=== PATIENT | female | born 1945 | race Caucasian/White ===

== ENCOUNTER 2017-06-28 06:28 | Inpatient (IN) ==
[2017-06-28] MEDS ORDERED: Lidocaine -MPF 4% 5 ML AMPUL ONE (06:53)
[2017-06-28] MEDS ORDERED: Lidocaine -MPF 2% 2 ML VIAL ONE ×2 (06:55→07:19)
[2017-06-28] MEDS ORDERED: *HR* Succinylcholine 200 MG/10 ML VIAL IVP ONE (06:55)
[2017-06-28] MEDS ORDERED: *HR* Phenylephrine 10 MG/ML VIAL ONE (06:55)
[2017-06-28] MEDS ORDERED: *HR* Propofol 200 MG/20 ML VIAL IVP ONE (06:56)
[2017-06-28] MEDS ORDERED: *HR* FentaNYL (PF) 100 MCG/2 ML VIAL ONE ×2 (06:56→08:21)
[2017-06-28] MEDS ORDERED: CeFAZolin Pre 2,000 MG/100 ML 2,000 MG/100 ML BAG IVPB ONE (06:57)
[2017-06-28] MEDS ORDERED: Albuterol 2.5 MG/3 ML NEBULIZER IH ONE (06:57)
[2017-06-28] MEDS ORDERED: D5 IVC SCH (07:00)
[2017-06-28] MEDS ORDERED: SODIUM BICARBONATE IVC SCH (07:00)
[2017-06-28] MEDS ORDERED: WATER IVC SCH (07:00)
[2017-06-28] MEDS ORDERED: Sod Bicarb 150mEq/D5W 150 MEQ/1,000 ML IV.SOLN IVC SCH (07:15)
--- NOTE | 2017-06-28 07:17 | History & Physical Report ---
Date of Encounter: 06/28/17 Time of Encounter: 07:16 24 Hour HP Update - Instructions Instructions: If the History and Physical is less than 30 days old and was completed prior to A.M. admission and or procedure and has NOT been updated on calendar day of procedure please complete this update prior to performing procedure. - Update Patient reports changes in Medical Condition: No Changes in examination, assessment, or condition: No Changes in Medication: No Preop tests/diagnostics Reviewed: Yes Surgery Remains Indicated: Yes Consent for Planned Operative Procedure(s) Verified: Yes - Pre-Operative Checklist Preoperative Checklist Indicated: Yes Prophylactic Antibiotic Ordered: Yes Home Medications Include Beta Yany: Yes Beta Yany Taken Today (Day of Surgery): Yes Beta Yany Taken Yesterday (Day Prior to Surgery): Yes Is VTE Prophylaxis Indicated?: Yes
[2017-06-28] MEDS ORDERED: Heparin 1,000 UNITS/500 mL NS 500 ML ONE ×2 (07:20→08:09)
[2017-06-28] MEDS ORDERED: Ketamine *HR* 500 MG/10 ML MDV ONE (07:22)
[2017-06-28] MEDS ORDERED: Acetaminophen IV 1,000 MG/100 ML INFUS..BTL ONE (07:30)
[2017-06-28] MEDS ORDERED: Heparin 1,000 UNITS/500 mL NS 1,000 ML ONE (07:32)
--- NOTE | 2017-06-28 07:41 | Anesthesia Evaluation PreOp ---
Date of Encounter: 06/28/17 Time of Encounter: 07:39 - Past History Planned Operation: Left iliac angio; poss fem-fem Cardiac History: HTN, Hyperlipidemia, Other (pvd) Pulmonary History: Smoker, COPD [facility] [employer] History: Other (anxiety, chronic pain) Other Medical History: Renal (stage V ckd), Diabetes Type II (insulin dependent) Alcohol Use: none Drug use: none Medications and Allergies Albuterol Neb [Proventil Neb] 2.5 mg IH TID PRN 06/28/17 [History] Albuterol Sulfate [Proair Hfa] 2 puff IH Q4H PRN 06/28/17 [History] Atorvastatin [Lipitor] 40 mg PO HS 06/28/17 [History] Docusate Sodium [Dok] 100 mg PO DAILY PRN 06/28/17 [History] Fluticasone/Salmeterol [Advair 250-50 Diskus] 1 puff IH BID 06/28/17 [History] Hydrochlorothiazide [Microzide] 12.5 mg PO DAILY 06/28/17 [History] Insulin Glargine,Hum.rec.anlog [Lantus Solostar] 20 unit SQ HS 06/28/17 [History ] Losartan Potassium [Cozaar] 50 mg PO DAILY 06/28/17 [History] Metoprolol [Lopressor] 50 mg PO DAILY 06/28/17 [History] Montelukast [Singulair] 10 mg PO DAILY 06/28/17 [History] Omeprazole [PriLOSEC] 40 mg PO DAILY 06/28/17 [History] Oxycodone HCl/Acetaminophen [Percocet 5-325 mg Tablet] 1 - 2 tab PO TID PRN [History] Promethazine HCl 12.5 mg PO BID PRN 06/28/17 [History] Ropinirole HCl [Requip] 0.5 mg PO HS 06/28/17 [History] SitaGLIPtin [Januvia] 100 mg PO DAILY 06/28/17 [History] clonazePAM [Klonopin] 0.5 mg PO BID PRN 06/28/17 [History] 3 Allergy/AdvReac Type Severity Reaction Status Date / Time No Known Allergies Allergy Verified 06/28/17 06:57 - Meds/Allergy Pre-op Review Medications Reviewed: Yes Allergies Reviewed: Yes Beta Blockers on Current Med List: Yes If Beta Blockers taken, Date/Time (Last Dose taken): 06-28-17 metoprolol 06-27-17 12:00 Anesthesia Results - Labs Laboratory Tests 06/22/17 06/22/17 06/22/17 17:58 17:58 17:58 WBC 14.7 H Hgb 13.1 Hct 40.5 Plt Count 524 H Sodium 133 L Potassium 3.6 Chloride 111 H Carbon Dioxide 11 L BUN 34 H Creatinine 1.87 H Est GFR ( Amer) 32 L Est GFR (Non-Af Amer) 27 L BUN/Creatinine Ratio 18 Glucose 94 POC Glucose Est Mean Plasma Glucose 117 Hemoglobin A1c 5.7 H Calculated Osmolality 283 06/28/17 06:55 WBC Hgb Hct Plt Count Sodium Potassium Chloride Carbon Dioxide BUN Creatinine Est GFR ( Amer) Est GFR (Non-Af Amer) BUN/Creatinine Ratio Glucose POC Glucose 132 H Est Mean Plasma Glucose Hemoglobin A1c Calculated Osmolality - Imaging EKG: report reviewed, image reviewed (SR) Anesthesia Exam Last Vital Signs Temp 98.3 F 06/28/17 07:30 Pulse 111 06/28/17 07:30 Resp 18 06/28/17 07:30 BP 130/69 06/28/17 07:30 Pulse Ox 95 06/28/17 07:30 Weight: 67 kg NPO (# of Hours): >> 8 hrs - HEENT Pupil (Motor): Pupils equal, EOMI Mallampati: III Teeth: Edentulous Denture Type: Upper: Complete, Lower: Complete Oral Opening: Greater than 3 - [facility] LOC: Oriented [facility] Motor: Normal RUE, Normal LUE, Normal RLE, Normal LLE, Normal Face - Cardiac Rhythm: Regular Murmur: None - Pulmonary Breath Sounds: bilateral Clear Respiratory Effort: Symmetrical Anesthesia Assess/Plan ASA Score: 3 Modified [place] Scale for Level of Consciousness: Cooperative, oriented, and tranquil Anesthetic Plan: General Monitoring Plan: Standard Monitors, A-Line Recovery Plan: PACU
[2017-06-28] MEDS ORDERED: diazePAM 5 MG TABLET PO ONE (07:56)
[2017-06-28] MEDS: diazePAM 5 MG TABLET PO ONE ×2 (07:57→12:02)
[2017-06-28] MEDS ORDERED: *HR* Midazolam HCl 5 MG/5 ML VIAL IVP ONE (08:00)
[2017-06-28] MEDS ORDERED: 0.9 % Sodium Chloride 500 ML IVC SCH (08:15)
[2017-06-28] MEDS ORDERED: *HR* Acetylcysteine 20% 600 MG/3 ML ORAL SYRINGE PO SCH (09:00)
[2017-06-28] MEDS ORDERED: *HR* Rocuronium Bromide 50 MG/5 ML VIAL ONE (09:04)
[2017-06-28] MEDS ORDERED: *HR* Labetalol 20 MG/4 ML SYRINGE IVP PRN (09:16)
[2017-06-28] MEDS ORDERED: *HR* HYDROmorphone (PF) 1 MG/ML SYRINGE IVP PRN (09:16)
[2017-06-28] MEDS ORDERED: Ondansetron 4 MG/2 ML VIAL IVP PRN ×2 (09:16→12:00)
--- NOTE | 2017-06-28 09:19 | Anesthesia Procedures ---
Date of Encounter: 06/28/17 Time of Encounter: 08:20 Procedures: Anesthesia - Arterial Line Consent obtained: written consent Time out performed: Yes Sedation: Versed (mg): 2 Sedation: Fentanyl (mcg): 200 Supplemental Oxygen via Nasal Cannula (L/min): 15 (circuit) Local Anesthetic: Lidocaine 1% Amount of Anesthetic used (mls): 1 Size (Gauge): 20 Length (inches): 1 3/4 Technique Used: sterile prep, guide wire technique, direct puncture technique, other (ultrasound guided) Post-Procedure: line taped into place, dry sterile dressing placed Patient tolerated procedure: well Complications: none Site: Brachial L Vitals: see anesthesia record
[2017-06-28] MEDS ORDERED: Dexamethasone 4 MG/ML VIAL ONE (10:09)
[2017-06-28] MEDS ORDERED: Ondansetron 4 MG/2 ML VIAL ONE (10:09)
[2017-06-28] MEDS ORDERED: Neostigmine Methylsulfate 3 MG/3 ML SYRINGE ONE (10:18)
[2017-06-28] MEDS ORDERED: *HR* Labetalol 20 MG/4 ML SYRINGE IVP ONE (10:22)
--- NOTE | 2017-06-28 10:57 | Operative Note ---
Date of procedure: 06/28/17 Pre-op diagnosis: pad/toe gangrene Post-op diagnosis: same Procedure: abdominal aortogram bilateral open femoral exposure bilateral(kissing) common iliac stents-7x27 mm balloon expandable stents Complications: none Anesthesia: LESLEY Surgeon: Selvin Burnham Estimated blood loss (cc): 50 Specimen: none Condition: stable Disposition: PACU Procedure in Detail: History Tana Cutler is a 71-year-old white female who has developed gangrene of the left first toe following a procedure for ingrown toenail. Patient has a history of diabetes and multiple other chronic medical concerns. A CT angiogram was obtained as well as noninvasive testing which indicated significant disease in the left lower extremity and in particular an occlusion or near occlusion of the left common iliac artery. Due to the tissue loss and patient was recommended to undergo intervention in an attempt to try to prevent major amputation. Procedure After informed consent was obtained the patient was taken to the operating room. General endotracheal anesthesia was established under arterial line pressure monitoring. The abdomen and groin and upper thighs were sterilely prepped and draped. A timeout protocol was observed. An incision was made in the left groin to perform a formal open femoral exposure. Controls obtained of the femoral artery. This was relatively small in size and was nonpulsatile. The patient did have Doppler signals through the vessel. An 18-gauge needle was then used to puncture the artery in a retrograde orientation. A wire was then inserted and then this was followed with a 6 [place] sheath and dilator. The dilator was removed and the sheath was aspirated and flushed. An angiogram was then performed by injecting contrast through the SideArm of the sheath. This demonstrated an occlusion of the proximal left common iliac artery. Then using a guidewire and a burn catheter the area of obstruction was able to be navigated and crossed. The burn catheter was placed in the infrarenal aorta and an aortogram was obtained. This demonstrated a significant stenosis that was under imaged on the CT angiogram. Therefore the patient was now going to need a bilateral procedure. Therefore a second incision was made and an open exposure was made of the right common femoral artery. Controls obtained of this vessel. Again an 18-gauge needle was used to puncture the vessel and a 6 [place] sheath was then placed over a wire. Using a Glidewire the area of the right common iliac artery stenosis was navigated. Heparin was administered intravenously and a dose of 5000 units. Using the angiogram measurements were made of the vessel for with an length. A 7 x 27 mm balloon expandable stent was selected to be placed in both common iliac arteries in a kissing balloon/kissing stent configuration. The stents were positioned under fluoroscopic control and then deployed simultaneously. After the balloons were deployed a completion aortogram was obtained. This demonstrated widely patent iliac bifurcation. There was no residual stenosis. The local lumbar vessels as well as the inferior mesenteric artery were preserved. There is no extravasation of dye. The patient tolerated this procedure well. Then with this information the wires and catheters were removed. The puncture sites were closed using 6-0 Prolene suture. The wounds were irrigated with antibiotic containing solution and hemostasis was achieved. The wounds were then closed in layers using absorbable suture. Dry sterile dressings were applied and the patient was extubated in the operating room and taken to the recovery room in stable condition. Excellent pulses and Doppler signals were identified in the femoral vessels after closure.
--- NOTE | 2017-06-28 11:50 | Anesthesia Evaluation Post Op ---
Date of Encounter: 06/28/17 Time of Encounter: 11:49 - Vital Signs Vital Signs: Vital Signs/O2 Sat/Glucose, Most Current Temp Pulse Resp BP Pulse Ox 06/28/17 11:44 97.9 F 92 16 141/74 100 06/28/17 11:34 97.5 F L 91 18 127/81 100 06/28/17 11:24 84 14 141/76 100 06/28/17 11:14 79 12 146/74 100 06/28/17 11:04 97.3 F L 74 15 142/76 99 - Lungs Lungs: Clear Ascult./Percussion - Airway Airway: Non-obstructed - Cardiovascular Regular Rate - Mental Status Mental Status: Alert & Oriented, Answers Appropriately - Pain Pain Scale: 2 - Nausea Vomiting Nausea Vomiting: Not Present - Hydration Hydration: NPO - Discharge PostOp Status: Transfer Patient to floor
[2017-06-28] MEDS ORDERED: Naloxone 0.4 MG/ML INJ IVP PRN (12:00)
[2017-06-28] MEDS ORDERED: clonazePAM 0.5 MG TABLET PO PRN (12:00)
[2017-06-28] MEDS ORDERED: Albuterol 2.5 MG/3 ML NEBULIZER IH PRN (12:00)
[2017-06-28] MEDS: ceFAZolin 2,000 MG in D5% in Water 100 ML IVPB SCH ×2 (15:55→23:52)
[2017-06-28] MEDS: *HR* OxyCODONE/APAP 5/325 TABLET PO PRN ×2 (17:29→20:25)
[2017-06-28] MEDS: *HR* Morphine 2 MG/ML SYRINGE IVP PRN ×2 (18:59→21:41)
[2017-06-28] MEDS: *HR* Acetylcysteine 20% 600 MG/3 ML ORAL SYRINGE PO SCH (20:28)
[2017-06-28] MEDS ORDERED: Insulin DETEMIR 100 UNIT/ML X5UNITS SQ SCH (21:00)
[2017-06-28] MEDS ORDERED: rOPINIRole 0.25 MG TABLET PO SCH (21:00)
[2017-06-28] MEDS: Budesonide/Formoterol 80/4.5 MDI IH SCH (21:02)
[2017-06-29] MEDS: *HR* Morphine 2 MG/ML SYRINGE IVP PRN ×4 (03:12→16:57)
[2017-06-29] MEDS: *HR* OxyCODONE/APAP 5/325 TABLET PO PRN ×2 (06:06→12:35)
[2017-06-29 07:33] LABS: Basophils # 0.1 K/mcL (0.0-0.2); Basophils % 0.2 %; Eosinophils # 0.1 K/mcL (0.0-0.6); Eosinophils % 0.3 %; Hematocrit 33.2 % (35.3-44.9); Hemoglobin 11.1 g/dL (11.5-15.4); Immature Granulocytes % 0.8 % (0-4); Lymphocytes # 3.8 K/mcL (0.6-4.6); Mean Corpuscular HGB Conc 33.4 g/dL (31.6-35.5); Mean Corpuscular Hemoglobin 30.9 pg (28.0-33.3); Mean Corpuscular Volume 92.5 fL (83.0-100.0); Mean Platelet Volume 10.3 fL (9.4-12.4); Monocytes # 1.4 K/mcL (0.0-1.3); Monocytes % 6.8 %; Neutrophils # 14.7 K/mcL (1.6-8.9); Platelet Count 333 K/mcL (140-400); Red Blood Count 3.59 M/mcL (3.82-4.97); Red Cell Distribution Width 15.9 % (11.5-14.5); Segmented Neutrophils % 72.9 %
[2017-06-29 07:37] LABS: Calcium 8.9 mg/dL (8.6-10.8)
[2017-06-29] MEDS: Budesonide/Formoterol 80/4.5 MDI IH SCH (08:05)
[2017-06-29] MEDS: *HR* Acetylcysteine 20% 600 MG/3 ML ORAL SYRINGE PO SCH (08:26)
[2017-06-29] MEDS: ceFAZolin 2,000 MG in D5% in Water 100 ML IVPB SCH (08:26)
[2017-06-29] MEDS ORDERED: hydroCHLOROthiazide 25 MG TABLET PO SCH (09:00)
[2017-06-29] MEDS ORDERED: *HR* SitaGLIPtin 25 MG TABLET PO SCH (09:00)
[2017-06-29 15:53] VITALS: BP 100/48
--- NOTE | 2017-06-29 18:00 | Discharge Summary ---
Date of Encounter: 06/29/17 Time of Encounter: 17:58 - Discharge Diagnosis (1) PAD (peripheral artery disease) Priority: Primary Status: Acute Comments: Patient has gangrene of 3 of the 5 toes on the left. Patient was documented as having high-grade left common iliac artery disease and was found to have significant right common iliac artery disease during surgery. She is status post bilateral stent placements performed yesterday. The perfusion to the left foot is dramatically improved with triphasic Doppler signals over the dorsalis pedis and posterior tibial arteries. The patient has reperfusion swelling. Patient will need further podiatric care with probable amputation of the toes. Patient was advised to follow up with scrap breaker within the next week. (2) Diabetes mellitus Priority: Secondary Status: Chronic Comments: Patient has long-standing diabetes under medical care. Qualifiers: Diabetes mellitus type: type 2 Diabetes mellitus complication status: with circulatory complication Diabetes mellitus complication detail: with peripheral angiopathy with gangrene Diabetes mellitus chcf insulin use: with termination clerk use Qualified Code(s): E11.52 - Type 2 diabetes mellitus with diabetic peripheral angiopathy with gangrene; Z79.4 - custodial (current) use of insulin (3) COPD (chronic obstructive pulmonary disease) Priority: Secondary Status: Chronic Comments: Patient has COPD under chronic medical care. Qualifiers: COPD type: unspecified COPD Qualified Code(s): J44.9 - Chronic obstructive pulmonary disease, unspecified (4) Hx of colostomy Priority: Secondary Status: Chronic Comments: Status post colectomy. (5) CKD (chronic kidney disease) stage 3, GFR 30-59 ml/min Priority: Secondary Status: Chronic Comments: Patient has long-standing chronic renal insufficiency. Patient was given Mucomyst and intravenous bicarbonate drip to ameliorate the effect of contrast per given during her surgery performed yesterday. The renal function has remained stable following contrast exposure. - Discharge Medications Home Medications: Albuterol Neb [Proventil Neb] 2.5 mg IH TID PRN 06/28/17 [History] Albuterol Sulfate [Proair Hfa] 2 puff IH Q4H PRN 06/28/17 [History] Atorvastatin [Lipitor] 40 mg PO HS 06/28/17 [History] Docusate Sodium [Dok] 100 mg PO DAILY PRN 06/28/17 [History] Fluticasone/Salmeterol [Advair 250-50 Diskus] 1 puff IH BID 06/28/17 [History] Hydrochlorothiazide [Microzide] 12.5 mg PO DAILY 06/28/17 [History] Insulin Glargine,Hum.rec.anlog [Lantus Solostar] 20 unit SQ HS 06/28/17 [History ] Losartan Potassium [Cozaar] 50 mg PO DAILY 06/28/17 [History] Metoprolol [Lopressor] 50 mg PO DAILY 06/28/17 [History] Montelukast [Singulair] 10 mg PO DAILY 06/28/17 [History] Omeprazole [PriLOSEC] 40 mg PO DAILY 06/28/17 [History] Oxycodone HCl/Acetaminophen [Percocet 5-325 mg Tablet] 1 - 2 tab PO TID PRN [History] Promethazine HCl 12.5 mg PO BID PRN 06/28/17 [History] Ropinirole HCl [Requip] 0.5 mg PO HS 06/28/17 [History] SitaGLIPtin [Januvia] 100 mg PO DAILY 06/28/17 [History] clonazePAM [Klonopin] 0.5 mg PO BID PRN 06/28/17 [History] Allergies/Adverse Reactions: 3 Allergy/AdvReac Type Severity Reaction Status Date / Time No Known Allergies Allergy Verified 06/28/17 06:57 Date of admission: 06/28/17 11:26 Primary care physician: Everette Madrigal CNP Consults: None Procedure(s) Performed: Bilateral open femoral exposure, abdominal and iliac angiogram, and bilateral common iliac artery stents. Discharging clinician: Selvin Burnham Anticipated date of discharge: 06/29/17 - Patient Status Disposition: Home, Self-Care Condition: Fair Functional capacity at discharge: uses cane/walker Overall status at discharge: patient is progressing back to baseline - Discharge Instructions Follow Up With: EVERETTE MADRIGAL [Other] - 07/06/17 10:00 am (EVERETTE HAS MOVED TO THE NEW LOCATION LISTED ABOVE) Selvin Burnham MD [Partnered Physician] - 07/20/17 1:30 pm Additional Instructions: No lifting greater than 10 pounds Remove bilateral groin dressings in 48 hours. Keep groin areas clean and dry. May use folded towel or washcloth in groin areas to keep skin edges separate and reduce moisture and perspiration. Resume usual home medications and diet. Patient is to follow-up with her scrap breaker within the next week for reevaluation of the left foot and possible toe amputations. - Diet and Activity Activity: increase activity as tolerated Diet: diabetic diet - Hospital Course Hospital course: Ms. Cutler is a 71 year old female With gangrene of toes of the left foot. She was found to have abnormal iliac system on CT angiogram. Yesterday she underwent surgery with direct open exposure of the femoral arteries and bilateral common iliac artery stent placements. Patient marked improvement of the perfusion to the left lower extremity with multiphasic Doppler signals at the left dorsalis pedis and posterior tibial arteries. The left foot is warm. Patient will need further podiatric care with toe amputations per her diet. - Time Spent with Patient Total time spent providing and/or coordinating discharge services: Exam Vital Signs, Last 4 Hours Temp Pulse Resp BP Pulse Ox 06/29/17 16:00 96.2 F L 71 16 100/48 95 06/29/17 15:38 96.2 F L 71 100/48 95 General: Present: Conversant, No Apparent Distress, Well developed, Well nourished HEENT: Present: Normocephaly Neck: Absent: JVD Cardiac: Present: Reg Rate and Rhythm, Normal S1 and S2 Lungs: Present: Normal Breath Sounds Neuro: Present: Alert and responsive, No focal deficits noted Abdomen: Present: Soft, Non-tender, Other (Patient has a functioning left lower quadrant colostomy) Vascular: Present: Normal capillary refill, Color/Temperature (Left foot is warm with signs of reperfusion.), Surgical incisions (Bilateral femoral incisions are clean and dry.), Other (Patient has gangrene involving the left first and second and fifth toes.) - VTE Documentation of Mechanical Device: Intermittent pneumatic compression device
== END 2017-06-29 18:35 | disposition home or self-care (01) | DRG 181 ==
LOC: SAMDAY 06:28 → 2NNU 11:26
PROVIDERS: ADMIT Surgery Vascular Surgery; ATTEND Surgery Vascular Surgery

== ENCOUNTER 2022-04-27 22:07 | Observation (INO) ==
[2022-04-28] MEDS ORDERED: Melatonin 3 MG TABLET PO PRN (03:02)
[2022-04-28] MEDS ORDERED: Ondansetron 4 MG/2 ML VIAL IVP PRN (03:02)
[2022-04-28] MEDS ORDERED: Acetaminophen 325 MG TABLET PO PRN (03:02)
[2022-04-28] MEDS ORDERED: Naloxone 0.4 MG/ML INJ IVP PRN (03:02)
[2022-04-28] MEDS ORDERED: D5% in Water 1,000 ML IVC PRN (03:04)
[2022-04-28] MEDS ORDERED: *HR* Dextrose 50 % in Water (Syg) 50 ML SYRINGE IVP PRN (03:04)
[2022-04-28] MEDS ORDERED: Dextrose Gel 15 GM/37.5 ML TUBE PO PRN ×2 (03:04)
[2022-04-28] MEDS ORDERED: Saliva Stimulant 44.3ml BOTTLE PO PRN (03:25)
[2022-04-28] MEDS: Ipratropium/Albuterol Neb 3 ML IH SCH ×4 (03:36→22:00)
[2022-04-28 04:41] LABS: VBG HCO3 20 mEq/L (21-27); VBG PCO2 40 mmHg (41-51); VBG PO2 38 mmHg (25-50)
[2022-04-28] MEDS ORDERED: Perflutren Lipid Microsphere 1.3 ML in 0.9 % Sodium Chloride 8.7 ML IVP PRN (04:47)
[2022-04-28 04:50] LABS: Basophils # 0.1 K/mcL (0.0-0.2); Basophils % 0.4 %; Eosinophils # 0.1 K/mcL (0.0-0.6); Eosinophils % 0.5 %; Hematocrit 35.7 % (35.3-44.9); Hemoglobin 11.4 g/dL (11.5-15.4); Lymphocytes # 2.6 K/mcL (0.6-4.6); Lymphocytes % 12.4 %; Mean Corpuscular HGB Conc 31.9 g/dL (31.6-35.5); Mean Corpuscular Volume 103.5 fL (83.0-100.0); Mean Platelet Volume 10.7 fL (9.4-12.4); Monocytes % 9.8 %; Neutrophils # 15.8 K/mcL (1.6-8.9); Platelet Count 349 K/mcL (140-400); Red Blood Count 3.45 M/mcL (3.82-4.97); Red Cell Distribution Width 13.4 % (11.5-14.5); Segmented Neutrophils % 75.9 %; White Blood Count 20.8 K/mcL (4.3-11.1)
[2022-04-28 05:00] LABS: Acetaminophen < 10 mcg/mL (10-20); Ethanol < 10 mg/dL (Less than 10); Salicylate < 2.5 mg/dL (15.0-30.0)
[2022-04-28 05:02] LABS: Albumin 3.5 g/dL (3.5-5.7); Albumin/Globulin Ratio 0.9 (1.1-2.2); Bilirubin,Total 0.4 mg/dL (0.3-1.0); Calcium 9.3 mg/dL (8.6-10.3); Chol/HDL Ratio 3.8 (0-4.9); INR 1.1; Magnesium 1.7 mg/dL (1.6-2.6); Potassium 3.7 mEq/L (3.5-5.1); Prothrombin Time 12.6 Seconds (9.4-12.1); Total Protein 7.5 g/dL (6.4-8.9)
[2022-04-28 05:03] LABS: Activated Partial Thrombo Time 31.2 Seconds (26.0-36.0)
[2022-04-28 05:27] LABS: Folate 11.7 ng/mL (3.0-16.0)
[2022-04-28] MEDS ORDERED: *HR* Heparin 5,000 UNIT/ML VIAL IVP ONE (05:55)
[2022-04-28] MEDS ORDERED: *HR* Heparin 5,000 UNIT/ML VIAL IVP PRN ×2 (05:55)
[2022-04-28] MEDS ORDERED: Heparin 25,000UNIT/250ML 1/2NS 25,000 UNIT/250 ML IV.SOLN IVC SCH (06:00)
[2022-04-28] MEDS ORDERED: *HR* Heparin 5,000 UNIT/ML VIAL SQ SCH (06:00)
[2022-04-28] MEDS: Pantoprazole 40 MG VIAL IVP SCH ×2 (06:47→08:40)
[2022-04-28] MEDS ORDERED: 0.9 % Sodium Chloride 1,000 ML IVC SCH (07:00)
[2022-04-28] MEDS: Aspirin Enteric Coated 81 MG Tablet PO SCH (08:36)
[2022-04-28] MEDS: Lactobacillus 1 EACH CAP.SPRINK PO SCH ×2 (08:36→20:08)
[2022-04-28] MEDS: predniSONE 20 MG TABLET PO SCH (08:36)
[2022-04-28] MEDS: Metoprolol XL (24 HR) Succ 50 MG TAB.ER.24H PO SCH (08:36)
[2022-04-28] MEDS: Chlorhexidine Rinse 15 ML MOUTHWASH MM SCH ×2 (08:36→20:08)
[2022-04-28] MEDS: Nicotine 21 MG PATCH.TD24 TD SCH (08:36)
[2022-04-28] MEDS: Budesonide/Formoterol 160/4.5 1 PUFF INH IH SCH ×2 (10:41→22:00)
[2022-04-28 11:58] LABS: Estimated Average Glucose 123 mg/dl; Hemoglobin A1C 5.9 %
[2022-04-28 13:32] LABS: Adenovirus Not Detected (Not Detect); Bordetella Pertussis Not Detected (Not Detect); Chlamydophila pneumoniae Not Detected (Not Detect); Coronavirus 229E Not Detected (Not Detect); Coronavirus HKU1 Not Detected (Not Detect); Coronavirus NL63 Not Detected (Not Detect); Coronavirus OC43 Not Detected (Not Detect); Human Metapneumovirus Not Detected (Not Detect); Human Rhinovirus/Enterovirus Not Detected (Not Detect); Influenza A Subtype 2009 H1 Not Detected (Not Detect); Influenza B Not Detected (Not Detect); Mycoplasma pneumoniae Not Detected (Not Detect); Parainfluenza Virus 1 Not Detected (Not Detect); Parainfluenza Virus 2 Not Detected (Not Detect); Parainfluenza Virus 3 Not Detected (Not Detect); Parainfluenza Virus 4 Not Detected (Not Detect); Respiratory Syncytial Virus Not Detected (Not Detect); SARS-CoV-2 Not Detected (Not Detect)
[2022-04-28] MEDS: *HR* Heparin 5,000 UNIT/ML VIAL SQ SCH (17:44)
[2022-04-28 18:27] LABS: Amphetamine Screen,Urine Negative ng/mL (Cutoff=1000); Barbiturate Screen,Urine Negative ng/mL (Cutoff=200); Benzodiazepines Screen,Urine Negative ng/mL (Cutoff=200); Cannabinoid Screen,Urine Negative ng/mL (Cutoff = 50); Cocaine Screen,Urine Negative ng/mL (Cutoff= 300); Opiate Screen,Urine Negative ng/mL (Cutoff=300); Phencyclidine Screen,Urine Negative ng/mL (Cutoff=25)
[2022-04-28] MEDS ORDERED: cefTRIAXone 2,000 MG in 0.9 % Sodium Chloride 20 ML IVP SCH (20:00)
[2022-04-28] MEDS ORDERED: cefTRIAXone 1,000 MG in 0.9 % Sodium Chloride 10 ML IVPB SCH (20:00)
[2022-04-29] MEDS: Ipratropium/Albuterol Neb 3 ML IH SCH ×3 (03:29→15:49)
[2022-04-29] MEDS: *HR* Heparin 5,000 UNIT/ML VIAL SQ SCH (04:15)
[2022-04-29 04:34] LABS: Basophils # 0.1 K/mcL (0.0-0.2); Basophils % 0.3 %; Eosinophils % 0.2 %; Hematocrit 32.8 % (35.3-44.9); Hemoglobin 10.6 g/dL (11.5-15.4); Immature Granulocytes % 1.2 % (0-4); Lymphocytes % 10.3 %; Mean Corpuscular HGB Conc 32.3 g/dL (31.6-35.5); Mean Corpuscular Hemoglobin 32.8 pg (28.0-33.3); Mean Corpuscular Volume 101.5 fL (83.0-100.0); Mean Platelet Volume 10.8 fL (9.4-12.4); Monocytes # 1.3 K/mcL (0.0-1.3); Monocytes % 6.6 %; Neutrophils # 15.5 K/mcL (1.6-8.9); Platelet Count 336 K/mcL (140-400); Red Blood Count 3.23 M/mcL (3.82-4.97); Red Cell Distribution Width 12.9 % (11.5-14.5); Segmented Neutrophils % 81.4 %
[2022-04-29 04:53] LABS: Calcium 9.1 mg/dL (8.6-10.3); Magnesium 1.9 mg/dL (1.6-2.6); Potassium 4.3 mEq/L (3.5-5.1)
[2022-04-29] MEDS: Lactobacillus 1 EACH CAP.SPRINK PO SCH (09:28)
[2022-04-29] MEDS: Chlorhexidine Rinse 15 ML MOUTHWASH MM SCH (09:28)
[2022-04-29] MEDS: Aspirin Enteric Coated 81 MG Tablet PO SCH (09:28)
[2022-04-29] MEDS: predniSONE 20 MG TABLET PO SCH (09:28)
[2022-04-29] MEDS: Pantoprazole 40 MG VIAL IVP SCH (09:29)
[2022-04-29] MEDS: Metoprolol XL (24 HR) Succ 50 MG TAB.ER.24H PO SCH (09:29)
[2022-04-29] MEDS: Nicotine 21 MG PATCH.TD24 TD SCH (09:30)
[2022-04-29] MEDS: Budesonide/Formoterol 160/4.5 1 PUFF INH IH SCH (11:13)
[2022-04-29 11:17] VITALS: O2SAT 96
[2022-04-29 11:52] VITALS: BP 152/84; PULSE 84; TEMP 98
== END 2022-04-29 17:33 | disposition home or self-care (01) ==
LOC: 3ANU → SUATTDRO 04-28 01:48
PROVIDERS: ADMIT Internal Medicine; ATTEND Internal Medicine